=== PATIENT | female | born 1980 | race African-American/Black ===

== ENCOUNTER 2018-01-15 20:12 | Emergency (ER) | payer MEDICAID ==
[~2018-01-15] VITALS: Ht 165.1 cm; Wt 150.0 kg
[2018-01-15] MEDS ORDERED: ONDANSETRON HCL 4MG/2ML VIAL IV ONE (22:00)
[2018-01-15] MEDS ORDERED: SODIUM CHLORIDE 0.9% 1,000 ML IV ONE (22:00)
[2018-01-15] MEDS ORDERED: MORPHINE SULFATE 4 MG/ML CPJ (NOT FOR IM USE) IV ONE (22:30)
[2018-01-15 22:45] LABS: CLARITY URINE CLEAR (CLEAR); COLOR URINE YELLOW (YELLOW); KETONES URINE NEGATIVE (NEGATIVE); LEUKOCYTE ESTERASE URINE NEGATIVE (NEGATIVE); NITRITE URINE NEGATIVE (NEGATIVE); OCCULT BLOOD URINE NEGATIVE (NEGATIVE); PH URINE 7.5 (4.5-8.0); PROTEIN URINE NEGATIVE (NEGATIVE); UROBILINOGEN URINE 0.2 E.U./dL (0.2-1.0)
[2018-01-15] MEDS ORDERED: DIATR MEGLU/DIATRIZOATE SOLN 30ML ONE (23:01)
[2018-01-15 23:39] LABS: BASOPHILS % 0.3 % (0.0-2.0); HEMOGLOBIN. 10.8 g/dL (12.0-16.0); LYMPHOCYTES % 8.1 % (20.0-50.0); MEAN CORPUSCULAR HEMOGLOBIN 28.5 pg (28.0-32.0); MEAN CORPUSCULAR VOLUME 86.5 fL (81.0-99.0); MEAN PLATELET VOLUME 7.6 fl (7.4-10.4); MONOCYTES % 4.1 % (2.0-8.0); NEUTROPHILS % 87.5 % (40.0-76.0); PLATELET 543 x1000/uL (130-400); RED BLOOD CELL COUNT 3.81 mill/uL (4.2-5.4); RED CELL DISTRIBUTION WIDTH 13.2 % (11.6-14.6)
[2018-01-15 23:46] LABS: CHLORIDE 107 mEq/L (98-107)
[2018-01-16 00:01] LABS: INR 1.1; PROTHROMBIN TIME 11.4 sec (9.4-11.6)
[2018-01-16] MEDS ORDERED: HYDROMORPHONE HCL/PF 2MG/ML CPJ IV ONE (01:00)
[2018-01-16] MEDS ORDERED: DIPHENHYDRAMINE 50MG/ML VIAL IV ONE (01:00)
[2018-01-16] MEDS ORDERED: METOCLOPRAMIDE HCL 10MG/2ML VIAL IV ONE (01:00)
[2018-01-16 04:00] VITALS: BP 148/85
[2018-01-16] MEDS ORDERED: IOHEXOL-300 100 ML BOTTLE ONE (07:08)
== END 2018-01-16 04:20 | disposition home or self-care (01) ==
LOC: ER 20:12
DX: C53.9 Malignant neoplasm of cervix uteri, unspecified (principal); Z90.710 Acquired absence of both cervix and uterus
CPT/HCPCS: 36415; 74177; 80053; 81003; 81025; 83690; 85025; 85610; 96361; 96374; 96375; 99285; J1170; J1200; J2270; J2405; J2765; J7030; Q9967; Z7610; Q9963

== ENCOUNTER 2018-02-27 15:15 | Emergency (ER) | payer MEDICAID ==
[~2018-02-27] VITALS: Ht 162.6 cm; Wt 50.0 kg
[2018-02-27 16:46] VITALS: BP 124/84
[2018-02-27 16:52] LABS: CHLORIDE 107 mEq/L (98-107)
[2018-02-27 16:58] LABS: BASOPHILS % 0.8 % (0.0-2.0); HEMATOCRIT. 27.6 % (36.0-48.0); HEMOGLOBIN. 9.1 g/dL (12.0-16.0); LYMPHOCYTES % 21.5 % (20.0-50.0); MEAN CORPUSCULAR HEMOGLOBIN 29.1 pg (28.0-32.0); MEAN CORPUSCULAR VOLUME 88.6 fL (81.0-99.0); MEAN PLATELET VOLUME 7.6 fl (7.4-10.4); MONOCYTES % 4.3 % (2.0-8.0); NEUTROPHILS % 71.4 % (40.0-76.0); PLATELET 951 x1000/uL (130-400); RED BLOOD CELL COUNT 3.11 mill/uL (4.2-5.4); RED CELL DISTRIBUTION WIDTH 13.9 % (11.6-14.6)
[2018-02-27 17:06] LABS: CLARITY URINE CLOUDY (CLEAR); COLOR URINE YELLOW (YELLOW); KETONES URINE NEGATIVE (NEGATIVE); LEUKOCYTE ESTERASE URINE 1+ (NEGATIVE); NITRITE URINE NEGATIVE (NEGATIVE); OCCULT BLOOD URINE 3+ (NEGATIVE); PROTEIN URINE 2+ (NEGATIVE); SPECIFIC GRAVITY URINE 1.014 (1.005-1.030); UROBILINOGEN URINE 0.2 E.U./dL (0.2-1.0)
== END 2018-02-27 16:55 | disposition home or self-care (01) ==
LOC: ER 15:33
DX: N99.528 Other complication of incontinent external stoma of urinary tract (principal)
CPT/HCPCS: 36415; 80053; 81003; 85025; 99284

== ENCOUNTER 2018-02-28 08:38 | Emergency (ER) | payer MEDICAID ==
[~2018-02-28] VITALS: Ht 162.6 cm; Wt 51.0 kg
[2018-02-28 09:22] LABS: CLARITY URINE CLEAR (CLEAR); COLOR URINE YELLOW (YELLOW); KETONES URINE NEGATIVE (NEGATIVE); LEUKOCYTE ESTERASE URINE 2+ (NEGATIVE); NITRITE URINE NEGATIVE (NEGATIVE); OCCULT BLOOD URINE 3+ (NEGATIVE); PROTEIN URINE 2+ (NEGATIVE); SPECIFIC GRAVITY URINE 1.015 (1.005-1.030); UROBILINOGEN URINE 0.2 E.U./dL (0.2-1.0)
[2018-02-28 09:49] VITALS: BP 108/84
== END 2018-02-28 09:52 | disposition home or self-care (01) ==
LOC: ER 08:46
DX: T83.89XA Other specified complication of genitourinary prosthetic devices, implants and grafts, initial encounter (principal); N39.0 Urinary tract infection, site not specified; F12.10 Cannabis abuse, uncomplicated; Z90.710 Acquired absence of both cervix and uterus; Z93.6 Other artificial openings of urinary tract status; Z85.9 Personal history of malignant neoplasm, unspecified; Y83.8 Other surgical procedures as the cause of abnormal reaction of the patient, or of later complication, without mention of misadventure at the time of the procedure; Y92.018 Other place in single-family (private) house as the place of occurrence of the external cause
CPT/HCPCS: 81003; 87077; 87086; 87186; 99284

== ENCOUNTER 2018-03-20 13:12 | Emergency (ER) | payer MEDICAID ==
[~2018-03-20] VITALS: Ht 157.5 cm; Wt 55.0 kg
[2018-03-20 13:19] VITALS: BP 120/78
== END 2018-03-20 17:27 | disposition left against medical advice (07) ==
LOC: ER 13:12
DX: R10.9 Unspecified abdominal pain (principal); R11.2 Nausea with vomiting, unspecified; Z53.21 Procedure and treatment not carried out due to patient leaving prior to being seen by health care provider

== ENCOUNTER 2018-05-15 12:57 | Inpatient (IN) | payer MEDICAID ==
[~2018-05-15] VITALS: Ht 162.6 cm; Wt 50.4 kg
[~2018-05-15 12:57] MED LIST: LORA-250 PO; METH-611 PO; METO-293 PO
[2018-05-15] MEDS ORDERED: ONDANSETRON HCL 4MG/2ML INJ IV STA (13:22)
[2018-05-15] MEDS ORDERED: KETOROLAC 30MG/ML VIAL IV STA (13:22)
[2018-05-15] MEDS ORDERED: SODIUM CHLORIDE 0.9% 1000ML BAG (SEPSIS BOLUS) IV ONE (13:30)
[2018-05-15] MEDS ORDERED: MORPHINE SULFATE 4 MG/ML CPJ (NOT FOR IM USE) IV ONE ×2 (15:15→16:00)
[2018-05-15] MEDS ORDERED: ONDANSETRON HCL 4MG/2ML INJ IV ONE ×2 (15:15→16:00)
[2018-05-15 15:17] LABS: BASOPHILS % 0.3 % (0.0-2.0); EOSINOPHILS % 0.4 % (0.0-5.0); HEMATOCRIT. 28.8 % (36.0-48.0); HEMOGLOBIN. 9.2 g/dL (12.0-16.0); LYMPHOCYTES % 17.5 % (20.0-50.0); MEAN CORPUSCULAR HEMOGLOBIN 27.8 pg (28.0-32.0); MEAN PLATELET VOLUME 7.7 fl (7.4-10.4); MONOCYTES % 4.7 % (2.0-8.0); NEUTROPHILS % 77.1 % (40.0-76.0); PLATELET 827 x1000/uL (130-400); RED BLOOD CELL COUNT 3.31 mill/uL (4.2-5.4); RED CELL DISTRIBUTION WIDTH 15.1 % (11.6-14.6)
[2018-05-15 15:19] LABS: INR 1.1; PROTHROMBIN TIME 11.2 sec (9.1-11.1)
[2018-05-15 15:24] LABS: CHLORIDE 99 mEq/L (98-107)
[2018-05-15] MEDS ORDERED: CEFTRIAXONE 1 G PREMIX 50 ML IV ONE (15:45)
[2018-05-15] MEDS ORDERED: ACETAMINOPHEN 325MG TABLET PO PRN (16:00)
[2018-05-15 16:59] LABS: CLARITY URINE CLOUDY (CLEAR); COLOR URINE YELLOW (YELLOW); KETONES URINE NEGATIVE (NEGATIVE); LEUKOCYTE ESTERASE URINE 2+ (NEGATIVE); NITRITE URINE NEGATIVE (NEGATIVE); OCCULT BLOOD URINE 3+ (NEGATIVE); PH URINE 5.5 (4.5-8.0); PROTEIN URINE 2+ (NEGATIVE); SPECIFIC GRAVITY URINE 1.019 (1.005-1.030); UROBILINOGEN URINE 0.2 E.U./dL (0.2-1.0)
[2018-05-15] MEDS ORDERED: FLUCONAZOLE 100MG TABLET PO ONE (19:00)
[2018-05-15 20:00] VITALS: BP 104/67
[2018-05-15] MEDS ORDERED: FLUCONAZOLE 150MG TABLET PO NR (20:00)
[2018-05-15 21:16] VITALS: BP 104/67
[2018-05-15] MEDS ORDERED: DIPHENHYDRAMINE 25MG CAPSULE PO PRN (22:00)
[2018-05-15] MEDS: ONDANSETRON HCL 4MG/2ML INJ IV PRN (22:20)
[2018-05-15] MEDS: MORPHINE SULFATE 4 MG/ML CPJ (NOT FOR IM USE) IV PRN (22:21)
[2018-05-15] MEDS: SODIUM CHLORIDE 0.9% 1,000 ML IV SCH (23:18)
[2018-05-16] VITALS: BP 94/61
[2018-05-16 02:32] VITALS: BP 110/66
[2018-05-16] MEDS: MORPHINE SULFATE 4 MG/ML CPJ (NOT FOR IM USE) IV PRN ×2 (02:33→05:59)
[2018-05-16 04:00] VITALS: BP 96/57
[2018-05-16] MEDS: ONDANSETRON HCL 4MG/2ML INJ IV PRN (04:05)
[2018-05-16 05:58] VITALS: BP 111/63
[2018-05-16 08:00] VITALS: BP 91/55
[2018-05-16] MEDS ORDERED: MORPHINE SULFATE 4 MG/ML CPJ (NOT FOR IM USE) IV PRN (08:00)
[2018-05-16] MEDS: SODIUM CHLORIDE 0.9% 1,000 ML IV SCH (08:13)
[2018-05-16 08:15] VITALS: BP 112/63
[2018-05-16 08:16] LABS: BASOPHILS % 0.4 % (0.0-2.0); EOSINOPHILS % 2.7 % (0.0-5.0); HEMATOCRIT. 22.2 % (36.0-48.0); HEMOGLOBIN. 7.1 g/dL (12.0-16.0); LYMPHOCYTES % 13.6 % (20.0-50.0); MEAN CORPUSCULAR HEMOGLOBIN 27.6 pg (28.0-32.0); MEAN CORPUSCULAR VOLUME 86.6 fL (81.0-99.0); MEAN PLATELET VOLUME 7.4 fl (7.4-10.4); MONOCYTES % 4.1 % (2.0-8.0); NEUTROPHILS % 79.2 % (40.0-76.0); PLATELET 802 x1000/uL (130-400); RED BLOOD CELL COUNT 2.56 mill/uL (4.2-5.4); RED CELL DISTRIBUTION WIDTH 15.2 % (11.6-14.6)
[2018-05-16 08:41] LABS: CHLORIDE 105 mEq/L (98-107)
[2018-05-16] MEDS ORDERED: PANTOPRAZOLE SODIUM 40 MG/VIAL IV SCH (09:00)
[2018-05-16] MEDS ORDERED: SODIUM CHLORIDE 0.9% 1,000 ML IV SCH (11:15)
[2018-05-16] MEDS ORDERED: CEFTRIAXONE 1 G PREMIX 50 ML IV SCH (17:00)
== END 2018-05-16 20:04 | disposition left against medical advice (07) | DRG 720 ==
LOC: ER 13:21 → 5WST 15:56 → EDBEDREQ 16:01 → EDBEDREQTM 16:01 → ENRESERV 19:16 → EDBEDREQ 20:10
PROVIDERS: ADMIT Internal Medicine; ATTEND Internal Medicine
DX: A41.9 Sepsis, unspecified organism (principal); E43 Unspecified severe protein-calorie malnutrition; E87.2 Acidosis; C78.6 Secondary malignant neoplasm of retroperitoneum and peritoneum; C16.9 Malignant neoplasm of stomach, unspecified; K76.0 Fatty (change of) liver, not elsewhere classified; D64.9 Anemia, unspecified; Z93.6 Other artificial openings of urinary tract status; G89.3 Neoplasm related pain (acute) (chronic); N39.0 Urinary tract infection, site not specified; Z51.5 Encounter for palliative care; Z92.3 Personal history of irradiation; Z68.1 Body mass index [BMI] 19.9 or less, adult
CPT/HCPCS: 36415; 71045; 71250; 74176; 76700; 80048; 81025; 83605; 84484; 87077; 93005; 96361; 96365; 96366; 96375; 96376; 99291; C9113; J0696; J1885; J2270; J2405; J7030; Q0163

== ENCOUNTER 2018-06-02 17:42 | Inpatient (IN) | payer MEDICAID ==
[~2018-06-02] VITALS: Ht 162.6 cm; Wt 50.8 kg
[2018-06-02] MEDS ORDERED: ONDANSETRON HCL 4MG/2ML INJ IV STA (18:47)
[2018-06-02] MEDS ORDERED: SODIUM CHLORIDE 0.9% 1,000 ML IV ONE (18:47)
[2018-06-02] MEDS ORDERED: MORPHINE SULFATE 4 MG/ML CPJ (NOT FOR IM USE) IV STA (18:47)
[2018-06-02 19:32] LABS: BASOPHILS % 0.3 % (0.0-2.0); EOSINOPHILS % 0.3 % (0.0-5.0); HEMATOCRIT. 22.4 % (36.0-48.0); HEMOGLOBIN. 7.3 g/dL (12.0-16.0); LYMPHOCYTES % 10.4 % (20.0-50.0); MEAN CORPUSCULAR HEMOGLOBIN 28.9 pg (28.0-32.0); MEAN CORPUSCULAR VOLUME 88.6 fL (81.0-99.0); MEAN PLATELET VOLUME 7.9 fl (7.4-10.4); MONOCYTES % 6.5 % (2.0-8.0); NEUTROPHILS % 82.5 % (40.0-76.0); PLATELET 640 x1000/uL (130-400); RED BLOOD CELL COUNT 2.53 mill/uL (4.2-5.4); RED CELL DISTRIBUTION WIDTH 15.8 % (11.6-14.6)
[2018-06-02 19:44] LABS: CHLORIDE 97 mEq/L (98-107)
[2018-06-02] MEDS ORDERED: DEXTROSE 5% WATER 1,000 ML IV ONE (20:15)
[2018-06-02] MEDS ORDERED: CEFTRIAXONE 1 G PREMIX 50 ML IV ONE (20:30)
[2018-06-02 21:02] LABS: CLARITY URINE CLOUDY (CLEAR); COLOR URINE YELLOW (YELLOW); KETONES URINE NEGATIVE (NEGATIVE); LEUKOCYTE ESTERASE URINE 3+ (NEGATIVE); NITRITE URINE POSITIVE (NEGATIVE); OCCULT BLOOD URINE 2+ (NEGATIVE); PROTEIN URINE 2+ (NEGATIVE); SPECIFIC GRAVITY URINE 1.014 (1.005-1.030); UROBILINOGEN URINE 0.2 E.U./dL (0.2-1.0)
[2018-06-03 09:00] VITALS: BP 99/70
[2018-06-03 09:43] VITALS: BP 99/70
[2018-06-03] MEDS ORDERED: ONDANSETRON HCL 4MG/2ML INJ IV PRN (09:45)
[2018-06-03] MEDS ORDERED: SODIUM CHLORIDE 0.9% 1,000 ML IV STA (10:24)
[2018-06-03] MEDS: PANTOPRAZOLE SODIUM 40 MG/VIAL IV SCH (10:45)
[2018-06-03] MEDS: DEXT 5%/0.45% NACL 1000ML 1,000 ML IV SCH (10:45)
[2018-06-03 12:00] VITALS: BP 96/67
[2018-06-03 12:15] LABS: INR 1.1; PARTIAL THROMBOPLASTIN TIME 30.7 sec (23.4-31.0); PROTHROMBIN TIME 10.7 sec (9.1-11.1)
[2018-06-03] MEDS ORDERED: DEXTROSE 50% WATER 50ML SYRINGE IV PRN (14:00)
[2018-06-03] MEDS ORDERED: SODIUM BICARBONATE 4% (2.4MEQ) 5ML VIAL IV ONE (14:07)
[2018-06-03] MEDS ORDERED: LIDOCAINE HCL 1% 20ML VIAL (Pyxis) INJ ONE (14:07)
[2018-06-03] MEDS ORDERED: OXYCODONE HCL 10MG TABLET SR 12HR PO NR (14:30)
[2018-06-03 16:00] VITALS: BP 101/67
[2018-06-03] MEDS: CEFTRIAXONE 2 G in DEXT 5% WATER 100 ML IV SCH (16:03)
[2018-06-03] MEDS: BLOOD SUGAR DIAGNOSTIC STRIP TEST SCH ×2 (17:41→21:31)
[2018-06-03 20:00] VITALS: BP 97/67
[2018-06-03] MEDS: OXYCODONE HCL 10MG TABLET SR 12HR PO SCH (20:54)
[2018-06-03 21:59] LABS: TOTAL IRON BINDING CAPACITY 101 ug/dL (250-450)
[2018-06-04] VITALS: BP_SYST 100; BP_SYST 78; BP_DIAS 47; BP_DIAS 65
[2018-06-04] MEDS: DEXT 5%/0.45% NACL 1000ML 1,000 ML IV SCH ×2 (00:48→12:25)
[2018-06-04] MEDS: MORPHINE SULFATE 4 MG/ML CPJ (NOT FOR IM USE) IV PRN (01:04)
[2018-06-04 04:00] VITALS: BP 83/49
[2018-06-04] MEDS: BLOOD SUGAR DIAGNOSTIC STRIP TEST SCH ×4 (06:18→21:00)
[2018-06-04 07:45] LABS: HEMATOCRIT. 24.9 % (36.0-48.0); HEMOGLOBIN. 7.8 g/dL (12.0-16.0); MEAN CORPUSCULAR HEMOGLOBIN 28.2 pg (28.0-32.0); MEAN CORPUSCULAR VOLUME 89.7 fL (81.0-99.0); MEAN PLATELET VOLUME 7.3 fl (7.4-10.4); PLATELET 602 x1000/uL (130-400); RED BLOOD CELL COUNT 2.77 mill/uL (4.2-5.4); RED CELL DISTRIBUTION WIDTH 15.8 % (11.6-14.6)
[2018-06-04 07:58] LABS: CHLORIDE 103 mEq/L (98-107)
[2018-06-04 08:00] VITALS: BP 98/66
[2018-06-04] MEDS: PANTOPRAZOLE SODIUM 40 MG/VIAL IV SCH (09:14)
[2018-06-04] MEDS: OXYCODONE HCL 10MG TABLET SR 12HR PO SCH ×2 (09:14→22:23)
[2018-06-04 09:48] LABS: *AMPHETAMINES SCREEN URINE NEGATIVE (NEGATIVE); *BARBITURATES SCREEN URINE NEGATIVE (NEGATIVE); *BENZODIAZEPINES SCREEN URINE NEGATIVE (NEGATIVE); *COCAINE SCREEN URINE NEGATIVE (NEGATIVE)
[2018-06-04 09:49] LABS: PHENCYCLIDINE URINE SCREEN NEGATIVE (NEGATIVE)
[2018-06-04 09:58] LABS: CANNABINOID URINE SCREEN PRESUMTIVE POSITIVE (NEGATIVE); METHADONE URINE SCREEN PRESUMTIVE POSITIVE (NEGATIVE); OPIATES URINE SCREEN PRESUMTIVE POSITIVE (NEGATIVE)
[2018-06-04 11:25] LABS: PLATELET ESTIMATE INCREASED
[2018-06-04 12:00] VITALS: BP 85/55
[2018-06-04] MEDS: CEFTRIAXONE 2 G in DEXT 5% WATER 100 ML IV SCH (13:08)
[2018-06-04 16:00] VITALS: BP 99/67
[2018-06-04 20:00] VITALS: BP 86/59
[2018-06-05] VITALS: BP 90/51
[2018-06-05] MEDS: DEXT 5%/0.45% NACL 1000ML 1,000 ML IV SCH ×2 (00:54→23:17)
[2018-06-05 00:56] LABS: HEMATOCRIT 20.3 % (36.0-48.0); HEMOGLOBIN 6.6 g/dL (12.0-16.0)
[2018-06-05 03:23] LABS: FOLIC ACID (FOLATE) SERUM 2.9 ng/mL (>5.38)
[2018-06-05 04:00] VITALS: BP 92/46
[2018-06-05 08:00] VITALS: BP 93/58
[2018-06-05] MEDS: BLOOD SUGAR DIAGNOSTIC STRIP TEST SCH ×4 (08:00→20:16)
[2018-06-05] MEDS: OXYCODONE HCL 10MG TABLET SR 12HR PO SCH ×2 (08:55→20:16)
[2018-06-05] MEDS: METHADONE HCL 10MG TABLET PO SCH (08:56)
[2018-06-05] MEDS: PANTOPRAZOLE SODIUM 40 MG/VIAL IV SCH (09:00)
[2018-06-05] MEDS ORDERED: ONDANSETRON 4MG ODT PO NR (09:45)
[2018-06-05 10:40] LABS: CHLORIDE 103 mEq/L (98-107)
[2018-06-05] MEDS ORDERED: LIDOCAINE HCL 1% 20ML VIAL (Pyxis) INJ ONE (10:55)
[2018-06-05] MEDS ORDERED: SODIUM BICARBONATE 4% (2.4MEQ) 5ML VIAL IV ONE (10:55)
[2018-06-05 11:17] LABS: BASOPHILS % 0.2 % (0.0-2.0); EOSINOPHILS % 0.3 % (0.0-5.0); HEMATOCRIT. 26.9 % (36.0-48.0); HEMOGLOBIN. 8.5 g/dL (12.0-16.0); LYMPHOCYTES % 9.4 % (20.0-50.0); MEAN CORPUSCULAR HEMOGLOBIN 28.2 pg (28.0-32.0); MEAN PLATELET VOLUME 8.3 fl (7.4-10.4); MONOCYTES % 3.8 % (2.0-8.0); NEUTROPHILS % 86.3 % (40.0-76.0); PLATELET 649 x1000/uL (130-400); RED BLOOD CELL COUNT 3.02 mill/uL (4.2-5.4); RED CELL DISTRIBUTION WIDTH 16.2 % (11.6-14.6)
[2018-06-05] MEDS: FOLIC ACID 1MG TABLET PO SCH (11:47)
[2018-06-05 12:00] VITALS: BP 99/64
[2018-06-05] MEDS: MORPHINE SULFATE 4 MG/ML CPJ (NOT FOR IM USE) IV PRN ×3 (12:57→23:16)
[2018-06-05 16:00] VITALS: BP 95/55
[2018-06-05] MEDS: CEFTRIAXONE 2 G in DEXT 5% WATER 100 ML IV SCH (16:40)
[2018-06-05] MEDS: ONDANSETRON HCL 4MG/2ML INJ IV PRN (18:59)
[2018-06-05 20:00] VITALS: BP 91/61
[2018-06-06] VITALS (8 sets, daily range): BP systolic 90–136; BP diastolic 58–68
[2018-06-06] MEDS: MORPHINE SULFATE 4 MG/ML CPJ (NOT FOR IM USE) IV PRN ×4 (03:30→18:33)
[2018-06-06] MEDS: DEXT 5%/0.45% NACL 1000ML 1,000 ML IV SCH ×2 (03:31→14:04)
[2018-06-06] MEDS: BLOOD SUGAR DIAGNOSTIC STRIP TEST SCH ×4 (05:21→21:15)
[2018-06-06 07:31] LABS: BASOPHILS % 0.3 % (0.0-2.0); EOSINOPHILS % 0.2 % (0.0-5.0); LYMPHOCYTES % 7.2 % (20.0-50.0); MEAN CORPUSCULAR HEMOGLOBIN 29.3 pg (28.0-32.0); MEAN PLATELET VOLUME 7.9 fl (7.4-10.4); MONOCYTES % 4.9 % (2.0-8.0); NEUTROPHILS % 87.4 % (40.0-76.0); PLATELET 507 x1000/uL (130-400); RED BLOOD CELL COUNT 2.16 mill/uL (4.2-5.4); RED CELL DISTRIBUTION WIDTH 15.5 % (11.6-14.6)
[2018-06-06 07:35] LABS: HEMOGLOBIN. 6.3 g/dL (12.0-16.0)
[2018-06-06 08:02] LABS: CHLORIDE 103 mEq/L (98-107)
[2018-06-06] MEDS: METHADONE HCL 10MG TABLET PO SCH (08:24)
[2018-06-06] MEDS: OXYCODONE HCL 10MG TABLET SR 12HR PO SCH ×2 (08:26→21:15)
[2018-06-06] MEDS: PANTOPRAZOLE SODIUM 40 MG/VIAL IV SCH (08:26)
[2018-06-06] MEDS: FOLIC ACID 1MG TABLET PO SCH (08:27)
[2018-06-06] MEDS: ONDANSETRON HCL 4MG/2ML INJ IV PRN ×2 (10:57→19:31)
[2018-06-06] MEDS: CEFTRIAXONE 2 G in DEXT 5% WATER 100 ML IV SCH (14:04)
[2018-06-06 23:52] LABS: HEMATOCRIT 32.8 % (36.0-48.0); HEMOGLOBIN 10.9 g/dL (12.0-16.0)
[2018-06-07] VITALS: BP 101/64
[2018-06-07] LABS: INR 1.1; PROTHROMBIN TIME 11.3 sec (9.1-11.1)
[2018-06-07] MEDS: MORPHINE SULFATE 4 MG/ML CPJ (NOT FOR IM USE) IV PRN ×4 (00:22→16:49)
[2018-06-07 04:00] VITALS: BP 103/69
[2018-06-07 06:58] LABS: HEMATOCRIT. 30.6 % (36.0-48.0); HEMOGLOBIN. 10.5 g/dL (12.0-16.0); MEAN CORPUSCULAR HEMOGLOBIN 30.5 pg (28.0-32.0); MEAN CORPUSCULAR VOLUME 88.7 fL (81.0-99.0); MEAN PLATELET VOLUME 7.7 fl (7.4-10.4); PLATELET 416 x1000/uL (130-400); RED BLOOD CELL COUNT 3.45 mill/uL (4.2-5.4); RED CELL DISTRIBUTION WIDTH 17.5 % (11.6-14.6)
[2018-06-07] MEDS: BLOOD SUGAR DIAGNOSTIC STRIP TEST SCH ×4 (07:18→21:19)
[2018-06-07 07:33] LABS: CHLORIDE 105 mEq/L (98-107)
[2018-06-07 08:00] VITALS: BP 103/72
[2018-06-07] MEDS: OXYCODONE HCL 10MG TABLET SR 12HR PO SCH ×2 (09:00→21:31)
[2018-06-07] MEDS: METHADONE HCL 10MG TABLET PO SCH (09:36)
[2018-06-07] MEDS: PANTOPRAZOLE SODIUM 40 MG/VIAL IV SCH (09:37)
[2018-06-07] MEDS: FOLIC ACID 1MG TABLET PO SCH (09:37)
[2018-06-07] MEDS: ONDANSETRON HCL 4MG/2ML INJ IV PRN (09:51)
[2018-06-07 12:00] VITALS: BP 108/70
[2018-06-07] MEDS: DEXT 5%/0.45% NACL 1000ML 1,000 ML IV SCH ×2 (12:44→20:25)
[2018-06-07 14:21] LABS: PLATELET ESTIMATE NORMAL
[2018-06-07 16:00] VITALS: BP 96/62
[2018-06-07 20:00] VITALS: BP 103/77
[2018-06-08] VITALS: BP 93/66
[2018-06-08 04:00] VITALS: BP 102/70
[2018-06-08] MEDS: HYDROCODONE/ACETAMINOPHEN 10/325MG TABLET PO PRN ×2 (06:01→16:53)
[2018-06-08] MEDS: BLOOD SUGAR DIAGNOSTIC STRIP TEST SCH ×4 (07:30→21:04)
[2018-06-08 08:00] VITALS: BP 99/70
[2018-06-08] MEDS: PANTOPRAZOLE SODIUM 40 MG/VIAL IV SCH (09:00)
[2018-06-08] MEDS: DEXT 5%/0.45% NACL 1000ML 1,000 ML IV SCH ×2 (09:45→23:05)
[2018-06-08] MEDS: OXYCODONE HCL 10MG TABLET SR 12HR PO SCH ×2 (10:09→21:05)
[2018-06-08] MEDS: FOLIC ACID 1MG TABLET PO SCH (10:10)
[2018-06-08] MEDS: METHADONE HCL 10MG TABLET PO SCH (10:10)
[2018-06-08 12:00] VITALS: BP 113/77
[2018-06-08 13:26] LABS: HEMATOCRIT. 33.9 % (36.0-48.0); HEMOGLOBIN. 10.8 g/dL (12.0-16.0); MEAN CORPUSCULAR HEMOGLOBIN 29.2 pg (28.0-32.0); MEAN CORPUSCULAR VOLUME 91.2 fL (81.0-99.0); MEAN PLATELET VOLUME 8.7 fl (7.4-10.4); PLATELET 360 x1000/uL (130-400); RED BLOOD CELL COUNT 3.72 mill/uL (4.2-5.4); RED CELL DISTRIBUTION WIDTH 17.5 % (11.6-14.6)
[2018-06-08 13:51] LABS: PLATELET ESTIMATE NORMAL
[2018-06-08 14:14] LABS: CHLORIDE 104 mEq/L (98-107)
[2018-06-08 16:00] VITALS: BP 107/66
[2018-06-08 20:00] VITALS: BP 101/68
[2018-06-09] VITALS: BP 133/57
[2018-06-09 04:00] VITALS: BP 101/60
[2018-06-09] MEDS: HYDROCODONE/ACETAMINOPHEN 10/325MG TABLET PO PRN ×4 (04:20→20:54)
[2018-06-09] MEDS: BLOOD SUGAR DIAGNOSTIC STRIP TEST SCH ×4 (06:41→21:00)
[2018-06-09 08:00] VITALS: BP 100/69
[2018-06-09] MEDS: FOLIC ACID 1MG TABLET PO SCH ×2 (08:56→09:00)
[2018-06-09] MEDS: METHADONE HCL 10MG TABLET PO SCH ×2 (08:56→09:00)
[2018-06-09] MEDS: PANTOPRAZOLE SODIUM 40 MG/VIAL IV SCH (09:00)
[2018-06-09 12:00] VITALS: BP 110/69
[2018-06-09 16:00] VITALS: BP 105/74
[2018-06-09] MEDS: MORPHINE SULFATE 15MG TABLET SR PO SCH ×2 (17:17→17:59)
[2018-06-09 20:00] VITALS: BP 92/57
[2018-06-10] VITALS: BP 99/57
[2018-06-10 04:00] VITALS: BP 100/70
[2018-06-10] MEDS: HYDROCODONE/ACETAMINOPHEN 10/325MG TABLET PO PRN (05:30)
[2018-06-10] MEDS: PANTOPRAZOLE 40MG DR TABLET PO SCH (07:04)
[2018-06-10 08:00] VITALS: BP 95/59
[2018-06-10] MEDS: BLOOD SUGAR DIAGNOSTIC STRIP TEST SCH ×4 (08:18→21:00)
[2018-06-10] MEDS: FOLIC ACID 1MG TABLET PO SCH (08:44)
[2018-06-10] MEDS: MORPHINE SULFATE 15MG TABLET SR PO SCH ×2 (08:45→22:52)
[2018-06-10] MEDS: METHADONE HCL 10MG TABLET PO SCH (08:46)
[2018-06-10 12:00] VITALS: BP 93/64
[2018-06-10 16:01] VITALS: BP 94/56
[2018-06-10 20:00] VITALS: BP 99/58
[2018-06-11] VITALS: BP 103/57
[2018-06-11 04:00] VITALS: BP 111/70
[2018-06-11] MEDS: BLOOD SUGAR DIAGNOSTIC STRIP TEST SCH ×4 (07:34→21:00)
[2018-06-11 08:00] VITALS: BP 106/63
[2018-06-11] MEDS: MORPHINE SULFATE 15MG TABLET SR PO SCH ×2 (08:28→22:04)
[2018-06-11] MEDS: PANTOPRAZOLE 40MG DR TABLET PO SCH (08:28)
[2018-06-11] MEDS: FOLIC ACID 1MG TABLET PO SCH (08:28)
[2018-06-11] MEDS ORDERED: MORPHINE SULFATE 4 MG/ML CPJ (NOT FOR IM USE) IV PRN (10:45)
[2018-06-11 12:30] VITALS: BP 100/59
[2018-06-11] MEDS: HYDROCODONE/ACETAMINOPHEN 10/325MG TABLET PO PRN ×2 (14:42→19:52)
[2018-06-11] MEDS: ONDANSETRON HCL 4MG/2ML INJ IM PRN ×2 (14:43→22:04)
[2018-06-11 16:00] VITALS: BP 111/69
[2018-06-11 20:00] VITALS: BP 135/81
[2018-06-12] VITALS: BP 92/55
[2018-06-12] MEDS: HYDROCODONE/ACETAMINOPHEN 10/325MG TABLET PO PRN ×2 (02:27→15:56)
[2018-06-12 04:00] VITALS: BP 96/62
[2018-06-12] MEDS: PANTOPRAZOLE 40MG DR TABLET PO SCH (06:54)
[2018-06-12] MEDS: BLOOD SUGAR DIAGNOSTIC STRIP TEST SCH ×4 (06:54→20:46)
[2018-06-12 08:00] VITALS: BP 95/62
[2018-06-12] MEDS ORDERED: IOHEXOL-300 50 ML BOTTLE IV ONE (09:05)
[2018-06-12] MEDS ORDERED: SODIUM BICARBONATE 4% (2.4MEQ) 5ML VIAL IV ONE (09:05)
[2018-06-12] MEDS ORDERED: LIDOCAINE HCL 1% 20ML VIAL (Pyxis) INJ ONE (09:05)
[2018-06-12] MEDS: FOLIC ACID 1MG TABLET PO SCH (10:48)
[2018-06-12] MEDS: MORPHINE SULFATE 15MG TABLET SR PO SCH ×2 (10:48→20:45)
[2018-06-12 12:00] VITALS: BP 105/60
[2018-06-12] MEDS: ONDANSETRON HCL 4MG/2ML INJ IM PRN (13:23)
[2018-06-12 16:00] VITALS: BP 100/53
[2018-06-12 20:00] VITALS: BP 93/55
[2018-06-13] VITALS: BP 98/61
[2018-06-13] MEDS: ONDANSETRON HCL 4MG/2ML INJ IM PRN ×2 (01:23→15:35)
[2018-06-13 04:00] VITALS: BP 105/68
[2018-06-13] MEDS: HYDROCODONE/ACETAMINOPHEN 10/325MG TABLET PO PRN ×2 (04:46→11:11)
[2018-06-13] MEDS: PANTOPRAZOLE 40MG DR TABLET PO SCH (06:22)
[2018-06-13] MEDS: BLOOD SUGAR DIAGNOSTIC STRIP TEST SCH ×4 (06:39→21:00)
[2018-06-13 08:00] VITALS: BP 90/51
[2018-06-13] MEDS: MORPHINE SULFATE 15MG TABLET SR PO SCH ×2 (08:14→22:20)
[2018-06-13] MEDS: FOLIC ACID 1MG TABLET PO SCH (08:16)
[2018-06-13 11:39] VITALS: BP 107/70
[2018-06-13] MEDS ORDERED: HYDROMORPHONE HCL 2MG TABLET PO PRN (12:30)
[2018-06-13] MEDS: METHADONE HCL 10MG TABLET PO SCH (15:25)
[2018-06-13 15:46] VITALS: BP 96/62
[2018-06-13 20:00] VITALS: BP 92/57
[2018-06-14] VITALS: BP 95/60
[2018-06-14 04:00] VITALS: BP 101/55
[2018-06-14] MEDS: PANTOPRAZOLE 40MG DR TABLET PO SCH ×2 (06:48→07:00)
[2018-06-14] MEDS: BLOOD SUGAR DIAGNOSTIC STRIP TEST SCH ×3 (06:49→21:56)
[2018-06-14 08:00] VITALS: BP 96/49
[2018-06-14] MEDS: METHADONE HCL 10MG TABLET PO SCH (08:36)
[2018-06-14] MEDS: FOLIC ACID 1MG TABLET PO SCH (08:36)
[2018-06-14] MEDS: MORPHINE SULFATE 15MG TABLET SR PO SCH (08:37)
[2018-06-14] MEDS: ONDANSETRON HCL 4MG/2ML INJ IM PRN ×3 (08:52→21:18)
[2018-06-14 12:00] VITALS: BP 92/56
[2018-06-14] MEDS: HYDROCODONE/ACETAMINOPHEN 10/325MG TABLET PO PRN ×2 (15:21→21:49)
[2018-06-14 16:00] VITALS: BP 92/50
[2018-06-14 20:00] VITALS: BP 151/106
[2018-06-15 04:00] VITALS: BP 127/88
[2018-06-15] MEDS: ONDANSETRON HCL 4MG/2ML INJ IM PRN ×4 (06:31→22:35)
[2018-06-15] MEDS: HYDROCODONE/ACETAMINOPHEN 10/325MG TABLET PO PRN ×2 (06:32→12:52)
[2018-06-15] MEDS: BLOOD SUGAR DIAGNOSTIC STRIP TEST SCH ×3 (07:20→16:51)
[2018-06-15 08:00] VITALS: BP 92/55
[2018-06-15] MEDS: METHADONE HCL 10MG TABLET PO SCH ×2 (08:38→08:57)
[2018-06-15] MEDS: FOLIC ACID 1MG TABLET PO SCH ×2 (08:39→08:57)
[2018-06-15 12:00] VITALS: BP 90/59
[2018-06-15 16:00] VITALS: BP 97/57
[2018-06-15] MEDS: HYDROMORPHONE HCL/PF 2MG/ML CPJ IM PRN ×2 (16:49→22:37)
[2018-06-15 20:00] VITALS: BP 89/56
[2018-06-16] VITALS: BP 103/63
[2018-06-16] MEDS: ONDANSETRON HCL 4MG/2ML INJ IM PRN ×4 (03:49→19:44)
[2018-06-16] MEDS: HYDROMORPHONE HCL/PF 2MG/ML CPJ IM PRN ×4 (03:50→19:44)
[2018-06-16 04:00] VITALS: BP 96/63
[2018-06-16] MEDS: PANTOPRAZOLE 40MG DR TABLET PO SCH (06:41)
[2018-06-16 08:00] VITALS: BP 102/67
[2018-06-16] MEDS: FOLIC ACID 1MG TABLET PO SCH (08:30)
[2018-06-16] MEDS: METHADONE HCL 10MG TABLET PO SCH ×2 (09:00→11:26)
[2018-06-16 12:00] VITALS: BP 95/88
[2018-06-16 16:00] VITALS: BP 102/67
[2018-06-16 20:00] VITALS: BP 95/62
[2018-06-17] VITALS: BP 92/59
[2018-06-17 04:00] VITALS: BP 95/59
[2018-06-17] MEDS: HYDROMORPHONE HCL/PF 2MG/ML CPJ IM PRN ×4 (06:30→21:56)
[2018-06-17] MEDS: PANTOPRAZOLE 40MG DR TABLET PO SCH (06:30)
[2018-06-17] MEDS: ONDANSETRON HCL 4MG/2ML INJ IM PRN ×4 (06:41→21:55)
[2018-06-17 08:00] VITALS: BP 90/67
[2018-06-17] MEDS: FOLIC ACID 1MG TABLET PO SCH (09:17)
[2018-06-17] MEDS: METHADONE HCL 10MG TABLET PO SCH (09:29)
[2018-06-17 12:00] VITALS: BP 93/57
[2018-06-17] MEDS ORDERED: ONDANSETRON 4MG ODT PO PRN (13:15)
[2018-06-17 16:00] VITALS: BP 106/67
[2018-06-17 20:00] VITALS: BP 99/63
[2018-06-17] MEDS: MORPHINE SULFATE 15MG TABLET SR PO SCH (21:00)
[2018-06-18] VITALS: BP 104/65
[2018-06-18 04:00] VITALS: BP 98/61
[2018-06-18] MEDS: ONDANSETRON HCL 4MG/2ML INJ IM PRN ×5 (04:04→21:44)
[2018-06-18] MEDS: HYDROMORPHONE HCL/PF 2MG/ML CPJ IM PRN ×5 (04:04→22:43)
[2018-06-18] MEDS: PANTOPRAZOLE 40MG DR TABLET PO SCH (06:51)
[2018-06-18 08:00] VITALS: BP 92/34
[2018-06-18] MEDS: MORPHINE SULFATE 15MG TABLET SR PO SCH ×2 (09:00→21:40)
[2018-06-18] MEDS: METHADONE HCL 10MG TABLET PO SCH (09:00)
[2018-06-18] MEDS: FOLIC ACID 1MG TABLET PO SCH (09:48)
[2018-06-18 12:00] VITALS: BP 92/62
[2018-06-18] MEDS: HYDROCODONE/ACETAMINOPHEN 10/325MG TABLET PO PRN ×2 (12:42→16:38)
[2018-06-18 16:00] VITALS: BP 95/61
[2018-06-18 20:00] VITALS: BP 99/64
[2018-06-19] VITALS: BP 99/61
[2018-06-19] MEDS: HYDROCODONE/ACETAMINOPHEN 10/325MG TABLET PO PRN ×3 (02:54→11:44)
[2018-06-19] MEDS: ONDANSETRON HCL 4MG/2ML INJ IM PRN ×4 (03:33→16:37)
[2018-06-19] MEDS: HYDROMORPHONE HCL/PF 2MG/ML CPJ IM PRN ×4 (03:34→16:38)
[2018-06-19 04:00] VITALS: BP 103/73
[2018-06-19] MEDS: PANTOPRAZOLE 40MG DR TABLET PO SCH (06:28)
[2018-06-19 08:00] VITALS: BP 106/72
[2018-06-19] MEDS: FOLIC ACID 1MG TABLET PO SCH (08:23)
[2018-06-19] MEDS: MORPHINE SULFATE 15MG TABLET SR PO SCH ×2 (09:00→20:42)
[2018-06-19 12:00] VITALS: BP 108/77
[2018-06-19 16:00] VITALS: BP 100/61
[2018-06-19 20:00] VITALS: BP 108/73
[2018-06-20] VITALS: BP 117/74
[2018-06-20] MEDS: ONDANSETRON HCL 4MG/2ML INJ IM PRN ×3 (00:15→14:06)
[2018-06-20] MEDS: HYDROMORPHONE HCL/PF 2MG/ML CPJ IM PRN ×3 (00:16→14:06)
[2018-06-20 04:00] VITALS: BP 102/64
[2018-06-20] MEDS: HYDROCODONE/ACETAMINOPHEN 10/325MG TABLET PO PRN ×2 (04:50→12:36)
[2018-06-20] MEDS: PANTOPRAZOLE 40MG DR TABLET PO SCH (07:20)
[2018-06-20] MEDS: FOLIC ACID 1MG TABLET PO SCH (08:48)
[2018-06-20] MEDS: MORPHINE SULFATE 15MG TABLET SR PO SCH (08:49)
[2018-06-20] MEDS ORDERED: METHADONE HCL 10MG TABLET PO SCH (09:00)
[2018-06-20 13:55] VITALS: BP 102/73
[2018-06-20 14:06] VITALS: BP 102/73
== END 2018-06-20 14:50 | disposition hospice, home (50) | DRG 720 ==
LOC: ER 17:42 → 6EST 20:15 → EDBEDREQTM 20:25 → EDBEDREQ 20:25 → EDBEDREQSVC 20:27 → ENRESERV 06-03 07:27 → 6EST 06-03 10:19
PROVIDERS: ADMIT Internal Medicine; ATTEND Internal Medicine
PROC: 0W9G3ZZ Drainage of Peritoneal Cavity, Percutaneous Approach (ICD-10-PCS; 2018-06-03)
PROC: 02HV33Z Insertion of Infusion Device into Superior Vena Cava, Percutaneous Approach (ICD-10-PCS; 2018-06-05)
PROC: B5181ZA Fluoroscopy of Superior Vena Cava using Low Osmolar Contrast, Guidance (ICD-10-PCS; 2018-06-05)
PROC: B548ZZA Ultrasonography of Superior Vena Cava, Guidance (ICD-10-PCS; 2018-06-05)
PROC: 30233N1 Transfusion of Nonautologous Red Blood Cells into Peripheral Vein, Percutaneous Approach (ICD-10-PCS; principal; 2018-06-06)
PROC: 0T25X0Z Change Drainage Device in Kidney, External Approach (ICD-10-PCS; 2018-06-12)
DX: A41.9 Sepsis, unspecified organism (principal); E43 Unspecified severe protein-calorie malnutrition; R18.8 Other ascites; C79.89 Secondary malignant neoplasm of other specified sites; C16.9 Malignant neoplasm of stomach, unspecified; I82.621 Acute embolism and thrombosis of deep veins of right upper extremity; E87.8 Other disorders of electrolyte and fluid balance, not elsewhere classified; E87.1 Hypo-osmolality and hyponatremia; T83.032A Leakage of nephrostomy catheter, initial encounter; Z66 Do not resuscitate; K66.9 Disorder of peritoneum, unspecified; N13.9 Obstructive and reflux uropathy, unspecified; R19.00 Intra-abdominal and pelvic swelling, mass and lump, unspecified site; Y83.8 Other surgical procedures as the cause of abnormal reaction of the patient, or of later complication, without mention of misadventure at the time of the procedure; E16.2 Hypoglycemia, unspecified; Z51.5 Encounter for palliative care; I82.611 Acute embolism and thrombosis of superficial veins of right upper extremity; N39.0 Urinary tract infection, site not specified; D64.9 Anemia, unspecified; E53.8 Deficiency of other specified B group vitamins; G89.3 Neoplasm related pain (acute) (chronic); K74.60 Unspecified cirrhosis of liver; Z85.42 Personal history of malignant neoplasm of other parts of uterus; Z90.710 Acquired absence of both cervix and uterus; Z86.718 Personal history of other venous thrombosis and embolism; Z79.899 Other long term (current) drug therapy; Z87.891 Personal history of nicotine dependence; Y92.89 Other specified places as the place of occurrence of the external cause; Z68.1 Body mass index [BMI] 19.9 or less, adult
CPT/HCPCS: 36415; 36569; 36598; 49083; 50435; 76770; 76937; 77001; 80048; 80305; 82607; 82728; 82746; 82962; 83540; 83550; 85014; 85018; 85044; 85049; 85384; 86850; 86900; 86920; 87106; 93971; 96361; 96365; 96375; 97162; 99285; C1725; C1729; C1769; C1893; C9113; J0696; J1170; J2270; J2405; J3490; J7030; J7040; J7050; J7060; J7070; P9016; Q0162; Q9967; A4315

== ENCOUNTER 2018-07-05 19:31 | Inpatient (IN) | payer MEDICAID ==
[~2018-07-05] VITALS: Ht 154.9 cm; Wt 50.3 kg
[2018-07-05 20:42] LABS: CLARITY URINE TURBID (CLEAR); COLOR URINE DARK YELLOW (YELLOW); KETONES URINE TRACE (NEGATIVE); LEUKOCYTE ESTERASE URINE 3+ (NEGATIVE); NITRITE URINE NEGATIVE (NEGATIVE); OCCULT BLOOD URINE 2+ (NEGATIVE); PH URINE 5.5 (4.5-8.0); PROTEIN URINE 2+ (NEGATIVE)
[2018-07-05] MEDS ORDERED: CEFTRIAXONE 1 G PREMIX 50 ML IV ONE (21:15)
[2018-07-05] MEDS ORDERED: SODIUM CHLORIDE 0.9% 1000ML BAG (SEPSIS BOLUS) IV ONE (22:30)
[2018-07-05 22:32] LABS: BASOPHILS % 0.1 % (0.0-2.0); EOSINOPHILS % 0.1 % (0.0-5.0); HEMATOCRIT. 21.8 % (36.0-48.0); HEMOGLOBIN. 7.1 g/dL (12.0-16.0); LYMPHOCYTES % 20.3 % (20.0-50.0); MEAN CORPUSCULAR HEMOGLOBIN 29.1 pg (28.0-32.0); MEAN CORPUSCULAR VOLUME 89.1 fL (81.0-99.0); MEAN PLATELET VOLUME 9.5 fl (7.4-10.4); MONOCYTES % 3.3 % (2.0-8.0); NEUTROPHILS % 76.2 % (40.0-76.0); PLATELET 579 x1000/uL (130-400); RED BLOOD CELL COUNT 2.44 mill/uL (4.2-5.4)
[2018-07-05 22:34] LABS: INR 1.3; PROTHROMBIN TIME 12.7 sec (9.1-11.1)
[2018-07-06 00:02] LABS: CHLORIDE 109 mEq/L (98-107)
[2018-07-06] MEDS: KCL 10MEQ/50ML PREMIX 50 ML IV SCH ×4 (00:59→05:55)
[2018-07-06 01:05] VITALS: BP 106/69
[2018-07-06] MEDS ORDERED: SODIUM CHLORIDE 0.9% 1,000 ML IV SCH (02:00)
[2018-07-06 04:00] VITALS: BP 96/64
[2018-07-06] MEDS ORDERED: MORP10DI10 PO (06:02)
[2018-07-06 08:00] VITALS: BP 93/61
[2018-07-06 12:00] VITALS: BP 104/68
[2018-07-06] MEDS: HYDROCODONE/ACETAMINOPHEN 5/325MG TABLET PO PRN (12:20)
[2018-07-06 16:00] VITALS: BP 105/59
[2018-07-06] MEDS: MORPHINE SULFATE 10MG/5ML ORAL SOLN UDC PO PRN (16:31)
[2018-07-06] MEDS: DEXT 5%/0.45% NACL KCL 30MEQ/L 1,000 ML IV SCH (19:02)
[2018-07-06 20:00] VITALS: BP 108/69
[2018-07-06 20:31] LABS: CHLORIDE 110 mEq/L (98-107)
[2018-07-06] MEDS: CEFTRIAXONE 1 G PREMIX 50 ML IV SCH (21:18)
[2018-07-06] MEDS ORDERED: VANCOMYCIN 1 G PREMIX 200 ML IV NR (22:00)
[2018-07-07] VITALS (9 sets, daily range): BP systolic 96–128; BP diastolic 62–80
[2018-07-07] MEDS: MORPHINE SULFATE 10MG/5ML ORAL SOLN UDC PO PRN ×3 (00:52→18:19)
[2018-07-07] MEDS: DEXT 5%/0.45% NACL KCL 30MEQ/L 1,000 ML IV SCH ×2 (04:00→18:59)
[2018-07-07] MEDS ORDERED: VANCOMYCIN 750 MG PREMIX 150 ML IV SCH (05:00)
[2018-07-07] MEDS ORDERED: IOHEXOL-350 100 ML BOTTLE ONE (10:37)
[2018-07-07] MEDS: VANCOMYCIN 750 MG PREMIX 150 ML IV SCH ×2 (11:58→20:01)
[2018-07-07] MEDS: HYDROCODONE/ACETAMINOPHEN 5/325MG TABLET PO PRN ×2 (15:23→22:54)
[2018-07-07] MEDS: CEFTRIAXONE 1 G PREMIX 50 ML IV SCH (22:54)
[2018-07-08] MEDS: MORPHINE SULFATE 10MG/5ML ORAL SOLN UDC PO PRN ×3 (02:33→19:56)
[2018-07-08] MEDS: VANCOMYCIN 750 MG PREMIX 150 ML IV SCH ×2 (03:33→22:35)
[2018-07-08] MEDS: DEXT 5%/0.45% NACL KCL 30MEQ/L 1,000 ML IV SCH ×3 (03:33→21:52)
[2018-07-08 04:00] VITALS: BP 99/70
[2018-07-08 08:25] VITALS: BP 104/68
[2018-07-08] MEDS: HYDROCODONE/ACETAMINOPHEN 5/325MG TABLET PO PRN ×3 (08:32→22:55)
[2018-07-08 11:44] LABS: MEAN CORPUSCULAR HEMOGLOBIN 28.5 pg (28.0-32.0); MEAN CORPUSCULAR VOLUME 89.2 fL (81.0-99.0); MEAN PLATELET VOLUME 9.6 fl (7.4-10.4); PLATELET 460 x1000/uL (130-400); RED BLOOD CELL COUNT 2.27 mill/uL (4.2-5.4); RED CELL DISTRIBUTION WIDTH 17.6 % (11.6-14.6)
[2018-07-08 11:46] LABS: CHLORIDE 109 mEq/L (98-107)
[2018-07-08 11:52] LABS: HEMATOCRIT. 20.2 % (36.0-48.0); HEMOGLOBIN. 6.5 g/dL (12.0-16.0)
[2018-07-08 11:56] VITALS: BP 100/65
[2018-07-08 12:23] LABS: PHOSPHORUS 0.7 mg/dL (2.5-4.9)
[2018-07-08 13:41] LABS: PLATELET ESTIMATE INCREASED
[2018-07-08] MEDS ORDERED: CALCIUM CHLORIDE 2,000 MG in DEXT 5% WATER 90 ML IV SCH (14:00)
[2018-07-08] MEDS ORDERED: MAGNESIUM 4 G PREMIX 100 ML IV SCH (14:00)
[2018-07-08] MEDS ORDERED: POTASSIUM PHOS,M-BASIC-D-BASIC 20 MMOL in DEXT 5% WATER 243.3333 ML IV SCH (14:00)
[2018-07-08 15:47] LABS: HEMATOCRIT 25.4 % (36.0-48.0)
[2018-07-08 16:00] VITALS: BP 107/75
[2018-07-08 19:54] VITALS: BP 112/82
[2018-07-08] MEDS: CEFTRIAXONE 1 G PREMIX 50 ML IV SCH (21:52)
[2018-07-08 23:54] VITALS: BP 124/82
[2018-07-09] VITALS (11 sets, daily range): BP systolic 111–128; BP diastolic 79–92
[2018-07-09] MEDS: MORPHINE SULFATE 10MG/5ML ORAL SOLN UDC PO PRN ×2 (02:07→12:24)
[2018-07-09 07:34] LABS: HEMATOCRIT. 28.5 % (36.0-48.0); HEMOGLOBIN. 9.3 g/dL (12.0-16.0); MEAN CORPUSCULAR HEMOGLOBIN 29.2 pg (28.0-32.0); MEAN CORPUSCULAR VOLUME 89.1 fL (81.0-99.0); PLATELET 473 x1000/uL (130-400); RED CELL DISTRIBUTION WIDTH 16.3 % (11.6-14.6)
[2018-07-09 07:52] LABS: CHLORIDE 107 mEq/L (98-107)
[2018-07-09] MEDS: VANCOMYCIN 750 MG PREMIX 150 ML IV SCH (10:03)
[2018-07-09 13:52] LABS: PLATELET ESTIMATE INCREASED
[2018-07-09] MEDS ORDERED: ONDANSETRON HCL 4MG/2ML INJ IV PRN (14:30)
[2018-07-09] MEDS: DEXT 5%/0.45% NACL KCL 30MEQ/L 1,000 ML IV SCH (14:34)
== END 2018-07-09 17:36 | disposition hospice, home (50) | DRG 720 ==
LOC: ER 19:31 → 8WST 21:57 → EDBEDREQ 22:00 → EDBEDREQTM 22:00 → ENRESERV 23:56
PROVIDERS: ADMIT Internal Medicine; ATTEND Internal Medicine
PROC: 02HV33Z Insertion of Infusion Device into Superior Vena Cava, Percutaneous Approach (ICD-10-PCS; principal; 2018-07-07)
PROC: B5181ZA Fluoroscopy of Superior Vena Cava using Low Osmolar Contrast, Guidance (ICD-10-PCS; 2018-07-07)
PROC: B548ZZA Ultrasonography of Superior Vena Cava, Guidance (ICD-10-PCS; 2018-07-07)
PROC: 30233N1 Transfusion of Nonautologous Red Blood Cells into Peripheral Vein, Percutaneous Approach (ICD-10-PCS; 2018-07-09)
DX: A41.9 Sepsis, unspecified organism (principal); E43 Unspecified severe protein-calorie malnutrition; G92 Toxic encephalopathy; C16.9 Malignant neoplasm of stomach, unspecified; R64 Cachexia; E83.51 Hypocalcemia; E86.9 Volume depletion, unspecified; N39.0 Urinary tract infection, site not specified; Z53.29 Procedure and treatment not carried out because of patient's decision for other reasons; E87.6 Hypokalemia; I51.7 Cardiomegaly; Z51.5 Encounter for palliative care; Z66 Do not resuscitate; Z92.3 Personal history of irradiation; Z68.21 Body mass index [BMI] 21.0-21.9, adult; Z85.42 Personal history of malignant neoplasm of other parts of uterus; Z79.899 Other long term (current) drug therapy
CPT/HCPCS: 36415; 36430; 36569; 71045; 76937; 77001; 80048; 80202; 82962; 83605; 83735; 84100; 84145; 84484; 85014; 85018; 86850; 86900; 86920; 93005; 96365; 99285; C1725; C1893; J0696; J2405; J3370; J3475; J3480; J3490; J7030; J7040; J7050; J7060; P9016; Q9967